=== PATIENT | female | born 1950 | race Caucasian/White ===

== ENCOUNTER 2020-05-12 11:40 | Emergency (ER) | payer MEDICARE ==
[~2020-05-12 11:40] MED LIST: Iopamidol 370 76% 100 ML VIAL ONE
[2020-05-12 12:23] LABS: #Basophils 0.1 thou/uL (0.0-0.2); #Eosinphils 0.2 thou/uL (0.0-0.7); #Lymphocytes 2.8 thou/uL (1.20-3.40); #Monocytes 0.5 thou/uL (0.11-0.59); #Neutrophils 2.6 thou/uL (1.40-6.50); %Basophils 1.1 % (0.0-1.0); %Eosinophils 3.8 % (0.0-10.0); %Lymphocytes 45.9 % (21.0-51.0); %Monocytes 7.3 % (0.0-10.0); Hemoglobin 11.1 g/dL (12.0-16.0); Mean Corpuscular HGB CONC 31.1 g/dL (32.0-36.0); Mean Corpuscular Volume 93.3 fL (78.0-98.0); Mean Platelet Volume 6.8 fL (7.4-10.4); Platelet Count 213 thou/uL (130-400); RBC Distribution Width 17.4 % (11.5-14.5); Red Blood Cell (RBC) Count 3.84 mill/uL (4.20-5.40); White Blood Cell (WBC) Count 6.2 thou/uL (4.8-10.8)
[2020-05-12 12:38] LABS: ALT (SGPT) 21 U/L (8-55); AST (SGOT) 23 U/L (5-34); Alkaline Phosphatase 93 U/L (40-110); Anion Gap 14 mmol/L (10-20); BUN (Urea Nitrogen) 16 mg/dL (9.8-20.1); Bilirubin, Total 0.7 mg/dL (0.2-1.2); Calc. Creatinine Clearance 0 mL/min (70-130); Calcium 9.3 mg/dL (7.8-10.44); Carbon Dioxide 27 mmol/L (23-31); Chloride 100 mmol/L (98-107); Glucose 99 mg/dL (80-115); Potassium 4.2 mmol/L (3.5-5.1); Sodium 137 mmol/L (136-145)
[2020-05-12] MEDS ORDERED: niCARdipine 20MG In NaCl 20 MG/200 ML BAG ONE ×4 (14:05→18:00)
[2020-05-12] MEDS ORDERED: Esmolol 2,500 MG/250 ML 250 ML ONE (14:25)
[2020-05-12] MEDS ORDERED: HYDROcodone/Acetaminophen 5/325 mg Tablet ONE (15:48)
[2020-05-12] MEDS ORDERED: Cephalexin 250 MG CAP ONE (15:48)
[2020-05-12] MEDS ORDERED: Morphine 4 MG/ML VIAL ONE ×2 (16:38→16:55)
[2020-05-12 17:02] LABS: SARS-CoV-2 NAA Rapid Test Not Detected (NotDetected)
--- NOTE | 2020-05-12 18:13 | CT ---
CT AORTIC DISSECTION PROTOCOL 05/12/[address] angio of the chest and abdomen was done for evaluation in this patient with high blood pressure and back pain. There is no sign of aortic dissection. The ascending aorta, however, is rather dilated, measuring abo ut 5.6 cm in AP diameter. The celiac artery, SMA, and KIMBERLY all fill normally. Both renal arteries fill and each kidney has an accessory renal artery. There is good filling of the common iliac arteries, i nternal and external iliac arteries. In the chest, one sees no pericardial effusion, or mediastinal mass or excessive adenopathy. The lung s are clear with no acute infiltrate seen. At most, there is a little atelectasis in the bases. There are a few areas where the pleura thickens slightly, but this may or may not be significant. CT of the abdomen shows an enlarged spleen measuring 18 cm in AP dimension. No lesions were seen in t he liver or pancreas. No gallstones were present. The adrenal glands and kidneys showed no acute find ings. The bowel showed no dilation or wall thickening. No free air or free fluid was seen. Multiple lytic lesions are seen throughout the visible bones in this patient. This includes the spine , sternum, portions of the pelvis, and some of the ribs. The etiology is uncertain, though I do note that the patient has a personal history of prior breast cancer. IMPRESSION: 1. Multiple lytic bony lesions including in the spine, ribs, sternum, and pelvis. Metastatic dis ease is suspected. 2. No evidence of aortic dissection, but the ascending aorta is dilated, 5.6 cm in AP width. 3. Splenomegaly. 4. Clear lungs. No hepatic lesions seen. Findings discussed with Dr. Blake at 1315 on 05/12/20. POS: HOME
== END 2020-05-12 17:35 | disposition short-term general hospital (02) ==
LOC: BURERS 11:40
DX: I71.2 Thoracic aortic aneurysm, without rupture (principal); J45.909 Unspecified asthma, uncomplicated; Z79.51 Long term (current) use of inhaled steroids
CPT/HCPCS: 0240U; 71275; 74174; 80053; 83880; 84484; 85025; 93005; 96365; 96366; 96375; J2270; Q9967

== ENCOUNTER 2020-11-02 20:34 | Emergency (ER) | payer MEDICARE | END 2020-11-02 21:30 | disposition short-term general hospital (02) | LOC: BURERS 20:34 | DX: M79.81 Nontraumatic hematoma of soft tissue (principal); R50.9 Fever, unspecified | CPT/HCPCS: 99284 ==